=== PATIENT | male | born 1940 | race Caucasian/White ===

== ENCOUNTER → 2016-07-22 | Outpatient (CLI) | payer OTHER, BC | LOC: BHFA 13:45 | PROVIDERS: ATTEND Internal Medicine Cardiovascular Disease | DX: I25.10 Atherosclerotic heart disease of native coronary artery without angina pectoris (principal); E78.00 Pure hypercholesterolemia, unspecified; I49.3 Ventricular premature depolarization; I10 Essential (primary) hypertension; E78.5 Hyperlipidemia, unspecified ==

== ENCOUNTER 2017-05-31 15:07 | Emergency (ER) | payer OTHER, BC ==
[2017-05-31 15:17] VITALS: TEMP 97.5
--- NOTE | 2017-05-31 15:26 | CPEKG ---
Heart Rate: 46 RR Interval: 1304 P-R Interval: 224 QRSD Interval: 110 QT Interval: 488 QTC Interval: 427 P [place]: 61 QRS [place]: 62 T Wave [place]: 46 EKG Severity - ABNORMAL ECG - EKG Impression: SINUS BRADYCARDIA EKG Impression: NONSPECIFIC INTRAVENTRICULAR CONDUCTION DELAY Electronically Signed By: Dean Dale 02-Jun-2017 16:15:55
[2017-05-31] MEDS ORDERED: NS 1,000 ML IV ONE (15:35)
[2017-05-31] MEDS ORDERED: ONDANSETRON 4 MG/2 ML VIAL IVP ONE (15:35)
--- NOTE | 2017-05-31 15:37 | EDPHY ---
HPI/HX/ROS/PE/MDM Narrative: CHIEF COMPLAINT: Vision changes, nausea HPI: The patient is a 76 y/o male arriving with his complaining of two episodes of vision "twitching" and nausea this afternoon. He has a history of hypercholesterolemia and mitral valve prolapse. This morning he felt normal upon waking and was able to drive his to an appointment and then back home without issue. While sitting on the couch getting ready to work out around 14:00 , about 1.5 hours ago, he began to feel "off." He began seeing the image on the TV shifting horizontally "like my eyes were twitching back and forth." He then felt too weak and lethargic to workout and developed nausea and "uneasiness" in his abdomen. The vision symptoms resolved for a while and then recurred while checking into the ED. He also says the back of his head "doesn't feel right," but he denies headache or pressure, chest pain, dyspnea, room-spinning dizziness , diplopia, lightheadedness, weakness, paresthesias, or other symptoms. He is a poor historian and has difficulty explaining his symptoms to me. REVIEW OF SYSTEMS: Aside from elements discussed in the HPI, a comprehensive 10-point review of systems was reviewed and is negative. PMH: Hypercholesterolemia, mitral valve prolapse, LVH, heart catheterization in 1979. SOCIAL HISTORY: Works out 6 days/week. at bedside. PHYSICAL EXAM: General:Patient is alert, in no acute distress. Bradycardic around 45-50. ENT:Eyes are normal to inspection. ENT inspection normal. Neck: Normal inspection. Full range of motion. Respiratory:No respiratory distress. Breath sounds normal bilaterally. Cardiovascular: Bradycardic rate and rhythm. Strong peripheral pulses. Normal cap refill. Abdomen:The abdomen is nontender to palpation. There are no peritoneal signs. Back: Normal to inspection. No tenderness to palpation. Skin: Normal color. No rash. Warm and dry. Extremities: Normal appearance. Full range of motion. Neuro: Oriented x3. Normal motor function. Normal sensory function. ED Course: This is a 76 y/o male who presents for evaluation of two episodes of vision changes, lethargy, and nausea this afternoon. Aside from bradycardia in the 45- 50 range, his exam is unremarkable. He is a difficult historian and may be describing short-lived vertiginous symptoms. Plan for IV, labs, EKG, and head CT. 1L IV NS and 4mg IV Zofran administered. The 12 lead EKG was interpreted by myself. Sinus bradycardia rate 46. Similar to EKG from 06/2011. See hard copy and/or "tracemaster" electronic copy for interpretation. Head CT shows nothing acute. Labs are normal. Patient is ambulating around the ED without eliciting symptoms and maintaining normal vitals. I discussed work up and offered admission for further evaluation of his symptoms, which he declined. He will follow up with his PCP as needed this week. Return precautions discussed. He agrees with this discharge plan. MDM: This patient presents with a somewhat challenging history. He describes acutely feeling worse at home just prior to arrival while at rest. His states that he looked pale. The patient himself states this his vision was abnormal, and that objects seemed to be moving from side to side. I questioned him extensively to determine whether he is describing vertigo, which seems most likely, but he is adamant that he has no sensation of movement. He denies double vision or other visual symptoms. He denies headache or chest pain. His exam is negative with the exception of significant bradycardia. ECG shows sinus rainer without conduction abnormalities, and his BP is normal. He states his HR is normally a bit low, and our old ECG shows a HR in the 40s from 2011, so this is clearly not a new phenomenon. The patient's workup, including CTH and troponin was negative and he remained asymptomatic in the ED for his entire stay. He was road tested and BP remained normal, with normal steady gait and no symptoms. I had an extensive discussion with the patient regarding his workup and options , and offered him admission to the hospital for further workup and observation. He declines this and would like to go home. He understands that the etiology of his symptoms is unclear so we are unable to fully rule out potentially serious disease. I think vertigo or something similar is the most likely scenario, but bradycardia may be a cause rather than a symptom of his presentation. I doubt TIA and there is no evidence for CVA. The patient promises to return should symptoms recur. - Data Points Imaging Results: Imaging Impressions Head CT 05/31/17 15:37 Impression: 1. No acute intracranial findings. 2. Diffuse cerebral atrophy with periventricular and subcortical low attenuation consistent with chronic microvascular ischemic gliosis. 3. Additional findings as above. Findings discussed with Jose Carballo MD, 05/31/[address] 16:19. Dr. Angelo Mayen reviewed the study and agrees with the findings. Imaging: Discussed imaging studies w/ call person Radiologist, I viewed and interpreted images myself Laboratory Results: Laboratory Results 05/31/17 15:32 05/31/17 15:32 05/31/17 05/31/17 05/31/17 15:32 15:32 15:32 WBC 8.08 10^3/uL 10^3/uL (3.80-9.50) RBC 4.53 10^6/uL 10^6/uL (4.40-6.38) Hgb 14.8 g/dL g/dL (13.7-17.5) Hct 43.4 % % (40.0-51.0) MCV 95.8 fL fL (81.5-99.8) MCH 32.7 pg pg (27.9-34.1) MCHC 34.1 g/dL g/dL (32.4-36.7) RDW 12.6 % % (11.5-15.2) Plt Count 210 10^3/uL 10^3/uL (150-400) MPV 9.6 fL fL (8.7-11.7) Neut % (Auto) 64.9 % % (39.3-74.2) Lymph % (Auto) 24.1 % % (15.0-45.0) Cross % (Auto) 7.9 % % (4.5-13.0) Eos % (Auto) 2.5 % % (0.6-7.6) Baso % (Auto) 0.5 % % (0.3-1.7) Nucleat RBC Rel Count 0.0 % % (0.0-0.2) Absolute Neuts (auto) 5.24 10^3/uL 10^3/uL (1.70-6.50) Absolute Lymphs (auto) 1.95 10^3/uL 10^3/uL (1.00-3.00) Absolute Monos (auto) 0.64 10^3/uL 10^3/uL (0.30-0.80) Absolute Eos (auto) 0.20 10^3/uL 10^3/uL (0.03-0.40) Absolute Basos (auto) 0.04 10^3/uL 10^3/uL (0.02-0.10) Absolute Nucleated RBC 0.00 10^3/uL 10^3/uL (0-0.01) Immature Gran % 0.1 % % (0.0-1.1) Immature Gran # 0.01 10^3/uL 10^3/uL (0.00-0.10) PT 13.8 SEC SEC (12.0-15.0) INR 1.04 (0.83-1.16) APTT 35.3 SEC SEC (23.0-38.0) Sodium 143 mEq/L mEq/L (134-144) Potassium 4.0 mEq/L mEq/L (3.5-5.2) Chloride 102 mEq/L mEq/L (97-110) Carbon Dioxide 28 mEq/l mEq/l (22-31) Anion Gap 13 mEq/L mEq/L (8-16) BUN 20 mg/dL mg/dL (7-23) Creatinine 0.9 mg/dL mg/dL (0.7-1.3) Estimated GFR > 60 Glucose 94 mg/dL mg/dL (70-100) Calcium 9.5 mg/dL mg/dL (8.5-10.4) Troponin I < 0.012 ng/mL ng/mL (0.000-0.034) NT-Pro-B Natriuret Pep 156 pg/mL pg/mL (0-450) Medications Given: Discontinued Medications Sodium Chloride (Ns) 1,000 mls @ 0 mls/hr IV EDNOW ONE; Wide Open PRN Reason: Protocol Stop: 05/31/17 15:36 Last Admin: 05/31/17 15:42 Dose: 1,000 mls Ondansetron HCl (Zofran) 4 mg IVP EDNOW ONE Stop: 05/31/17 15:36 Last Admin: 05/31/17 15:43 Dose: 4 mg General Time Seen by Provider: 05/31/17 15:21 Initial Vital Signs: Initial Vital Signs Temperature (C) 36.4 C 05/31/17 15:14 Heart Rate 47 L 05/31/17 15:14 Respiratory Rate 18 05/31/17 15:14 Blood Pressure 142/66 H 12/05/17 15:14 O2 Sat (%) 95 05/31/17 15:14 O2 Delivery Mode Room Air Allergies/Adverse Reactions: No Known Allergies Allergy (Verified 05/31/17 15:13) Home Medications: Medication Instructions Recorded Aspirin [Aspirin 81mg (OTC)] 08/22/14 Levothyroxine [Synthroid 50 mcg 50 mcg PO DAILY06 08/22/14 (RX)] Metoprolol Succinate Xr [Toprol Xl 100 mg PO DAILY 08/22/14 100 mg (RX)] Simvastatin [Zocor 10 mg (RX)] 10 mg PO DAILY18 08/22/14 Ramipril [Altace 2.5mg (*)] 09/03/15 Departure - Departure Disposition: Home, Routine, Self-Care Clinical Impression: Nausea Condition: Good Instructions: Acute Nausea and Vomiting (ED) Additional Instructions: Follow up with your primary care provider for unimproved symptoms over the next 2-3 days. Return to the ED for chest pain, shortness of breath, severe headache , or other worsening of condition. Referrals: Geoffrey Holcomb MD [[facility] [place]] - As per Instructions Report Scribed for: Jose Carballo Report Scribed by: Natalie Herbert Date of Report: 05/31/17 Time of Report: 15:37 Physician Review and Approval Statement: Portions of this note were transcribed by an ED scribe. I personally performed the history, physical exam, and medical decision making; and confirm the accuracy of the information in the transcribed note.
[2017-05-31 15:47] LABS: % IMMATURE GRANULYOCYTES 0.1 % (0.0-1.1); ABSOLUTE IMMATURE GRANULOCYTES 0.01 10^3/uL (0.00-0.10); ADD DIFF? NO; ADD MORPH? NO; ADD SCAN? NO; ATYPICAL LYMPHOCYTE FLAG 10 (0-99); FRAGMENT RBC FLAG 0 (0-99); HEMATOCRIT 43.4 % (40.0-51.0); HEMOGLOBIN 14.8 g/dL (13.7-17.5); LEFT SHIFT FLG 0 (0-99); LIPEMIA HEMOLYSIS FLAG 90 (0-99); MEAN CELL HEMOGLOBIN 32.7 pg (27.9-34.1); MEAN CELL HEMOGLOBIN CONCENTR. 34.1 g/dL (32.4-36.7); MEAN CELL VOLUME 95.8 fL (81.5-99.8); MEAN PLATELET VOLUME 9.6 fL (8.7-11.7); PLATELET CLUMPS FLAG 0 (0-99); PLATELET COUNT 210 10^3/uL (150-400); RED BLOOD CELL COUNT 4.53 10^6/uL (4.40-6.38); RED CELL DISTRIBUTION WIDTH 12.6 % (11.5-15.2)
[2017-05-31 16:04] LABS: INR 1.04 (0.83-1.16); PROTIME(PATIENT) 13.8 SEC (12.0-15.0)
[2017-05-31 16:05] LABS: ANION GAP 13 mEq/L (8-16); APTT 35.3 SEC (23.0-38.0); CALCIUM 9.5 mg/dL (8.5-10.4); CARBON DIOXIDE 28 mEq/l (22-31); CHLORIDE 102 mEq/L (97-110); CREATININE 0.9 mg/dL (0.7-1.3); GLOMERULAR FILTRATION RATE > 60; GLUCOSE 94 mg/dL (70-100); SODIUM 143 mEq/L (134-144)
[2017-05-31 16:17] LABS: TROPONIN I < 0.012 ng/mL (0.000-0.034)
[2017-05-31 16:52] VITALS: RESP 16
[2017-05-31 17:21] VITALS: BP 137/65; PULSE 46; O2SAT 93
== END 2017-05-31 17:21 | disposition home or self-care (01) ==
DX: R11.0 Nausea (principal); E86.9 Volume depletion, unspecified; Z79.82 Long term (current) use of aspirin
CPT/HCPCS: 70450; 93005; 96361; 96374; 99285; J2405

== ENCOUNTER → 2018-05-23 | Outpatient (CLI) | payer OTHER, BC | LOC: BHFA 13:15 | PROVIDERS: ATTEND Physician Assistant | DX: I49.3 Ventricular premature depolarization (principal); I49.9 Cardiac arrhythmia, unspecified; I25.10 Atherosclerotic heart disease of native coronary artery without angina pectoris; E78.00 Pure hypercholesterolemia, unspecified ==